=== PATIENT | male | born 1995 | race Caucasian/White ===

== ENCOUNTER 2022-06-08 01:53 | Emergency (ER) | payer OTHER, SELFPAY ==
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
[2022-06-08 01:59] VITALS: BP 128/78; PULSE 84; RESP 16; TEMP 36.6; O2SAT 99; BMI 27.1
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
== END 2022-06-08 04:20 | disposition home or self-care (01) ==
PROVIDERS: Emergency Provider Internal Medicine
DX: S09.90XA Unspecified injury of head, initial encounter (principal); R51.9 Headache, unspecified; Y04.2XXA Assault by strike against or bumped into by another person, initial encounter; Y93.9 Activity, unspecified; Y92.9 Unspecified place or not applicable; Y99.9 Unspecified external cause status
CPT/HCPCS: 70450; 99282; 99284